=== PATIENT | female | born 1950 | race Caucasian/White ===

== ENCOUNTER 2022-03-08 10:56 | Outpatient (RCR) | payer MEDICARE ==
[~2022-03-08 10:56] MED LIST: CELEBREX200 MG PO; CENTRUM SILVER1 EAC3 PO; ESTRADIOL1 MG PO; FLONASE ALLERG9.9 ML INH; GLUCOSAMINE1000 MG PO; IRON PO; LEVOTHYROXINE50 MCG PO; METOPROLOL SUCC50 MG PO; OMEPRAZOLE40 MG PO; SUDAFED PO; URIBEL CAPSULE1 EACH PO; VIT C PO; VITAMIN D325 MCG PO; ZYRTEC10 M3 PO
== END 2022-03-12 ==
LOC: PT 10:56
PROVIDERS: ATTEND Neurological Surgery
DX: M48.061 Spinal stenosis, lumbar region without neurogenic claudication (principal)

== ENCOUNTER → 2022-03-11 | Day surgery (SDC) | payer MEDICARE ==
[2022-03-08 12:55] LABS: BASOPHILS % 0.7 % (0.0-1.0); EOSINOPHILS # (AUTO) 0.2 (0.0-0.4); EOSINOPHILS % 3.2 % (0.0-6.0); HEMATOCRIT 39.7 % (34.2-44.1); HEMOGLOBIN 12.1 g/dL (12.0-16.0); LYMPHOCYTES # (AUTO) 1.5 (1.0-3.2); LYMPHOCYTES % 26.3 % (18.0-39.1); MEAN CORPUSCULAR HEMOGLOBIN 30.2 pg (28-32); MEAN CORPUSCULAR HGB CONC 30.5 g/dL (31-35); MONOCYTES # (AUTO) 0.5 (0.2-0.8); MONOCYTES % 7.9 % (4.4-11.3); NEUTROPHILS # (AUTO) 3.6 (2.1-6.9); NEUTROPHILS % 61.7 % (38.7-80.0); PLATELET COUNT 232 x10e3/uL (140-360); RED BLOOD COUNT 4.01 x10e6/uL (3.6-5.1); RED CELL DISTRIBUTION WIDTH 13.5 % (11.7-14.4)
[~2022-03-11] MED LIST changes: +BUPIVACAINE 0.25% 30ML SDV ONE; +IOPAMIDOL 200 MG/ML 20 ML VIAL IT ONE; +LIDOCAINE HCL 1% 30ML-PF VIAL ONE; +LIDOCAINE HCL 2% LOCAL INJ 5 ML SDV VIAL INJ ONE; +MIDAZOLAM HCL 2 MG/2 ML VIAL ONE; +PROPOFOL IV EMULSION 10 MG/ML 20 ML VIAL ONE; +TRIAMCINOLONE ACET 40 MG/ML VIAL ONE
[2022-03-11 07:20] VITALS: BP 116/85
== END | disposition home or self-care (01) ==
LOC: OR 05:59
PROVIDERS: ATTEND Physical Medicine & Rehabilitation Pain Medicine
DX: M47.896 Other spondylosis, lumbar region (principal); E03.9 Hypothyroidism, unspecified; I10 Essential (primary) hypertension; M25.40 Effusion, unspecified joint; Z96.653 Presence of artificial knee joint, bilateral; Z88.5 Allergy status to narcotic agent; Z91.012 Allergy to eggs; Z91.040 Latex allergy status; Z91.011 Allergy to milk products; Z01.810 Encounter for preprocedural cardiovascular examination; Z01.812 Encounter for preprocedural laboratory examination; F41.9 Anxiety disorder, unspecified
CPT/HCPCS: 36415; 64493; 64494; 77003; 85025; 93005; J2001 ×2; J2250; J2704; J3301; Q9967

== ENCOUNTER 2022-03-15 07:03 | Outpatient (RCR) | payer MEDICARE ==
[~2022-03-15 07:03] MED LIST changes: -BUPIVACAINE 0.25% 30ML SDV ONE; -IOPAMIDOL 200 MG/ML 20 ML VIAL IT ONE; -LIDOCAINE HCL 1% 30ML-PF VIAL ONE; -LIDOCAINE HCL 2% LOCAL INJ 5 ML SDV VIAL INJ ONE; -MIDAZOLAM HCL 2 MG/2 ML VIAL ONE; -PROPOFOL IV EMULSION 10 MG/ML 20 ML VIAL ONE; -TRIAMCINOLONE ACET 40 MG/ML VIAL ONE
== END 2022-04-12 ==
LOC: PT 07:03
PROVIDERS: ATTEND Neurological Surgery
DX: M48.062 Spinal stenosis, lumbar region with neurogenic claudication (principal); M62.81 Muscle weakness (generalized); R26.2 Difficulty in walking, not elsewhere classified

== ENCOUNTER 2022-04-16 06:56 | Outpatient (RCR) | payer MEDICARE ==
[2022-04-26] MEDS ORDERED: ALLEGRA ALLERGY60 MG PO (11:24)
== END 2022-05-12 ==
LOC: PT 06:56
PROVIDERS: ATTEND Neurological Surgery
DX: M48.062 Spinal stenosis, lumbar region with neurogenic claudication (principal); M62.81 Muscle weakness (generalized); R26.2 Difficulty in walking, not elsewhere classified

== ENCOUNTER → 2022-04-29 | Day surgery (SDC) | payer MEDICARE ==
[2022-04-26 13:20] LABS: BASOPHILS % 0.5 % (0.0-1.0); EOSINOPHILS # (AUTO) 0.2 (0.0-0.4); EOSINOPHILS % 3.6 % (0.0-6.0); HEMATOCRIT 39.6 % (34.2-44.1); HEMOGLOBIN 12.2 g/dL (12.0-16.0); LYMPHOCYTES # (AUTO) 1.8 (1.0-3.2); LYMPHOCYTES % 31.8 % (18.0-39.1); MEAN CORPUSCULAR HGB CONC 30.8 g/dL (31-35); MEAN CORPUSCULAR VOLUME 100.5 fL (81-99); MONOCYTES # (AUTO) 0.5 (0.2-0.8); MONOCYTES % 8.5 % (4.4-11.3); NEUTROPHILS # (AUTO) 3.1 (2.1-6.9); NEUTROPHILS % 55.2 % (38.7-80.0); PLATELET COUNT 225 x10e3/uL (140-360); RED BLOOD COUNT 3.94 x10e6/uL (3.6-5.1); RED CELL DISTRIBUTION WIDTH 13.4 % (11.7-14.4)
[~2022-04-29] MED LIST changes: +ALLEGRA ALLERGY60 MG PO; +BUPIVACAINE 0.25% 30ML SDV ONE; +ETOMIDATE 2 MG/ML 10 ML INJ IV ONE; +IOPAMIDOL 200 MG/ML 20 ML VIAL IT ONE; +LIDOCAINE HCL 1% 30ML-PF VIAL ONE; +MIDAZOLAM HCL 2 MG/2 ML VIAL ONE; +PROPOFOL IV EMULSION 10 MG/ML 20 ML VIAL ONE; +TRIAMCINOLONE ACET 40 MG/ML VIAL ONE
[2022-04-29 09:15] VITALS: BP 151/81
== END | disposition home or self-care (01) ==
LOC: OR 06:13
PROVIDERS: ATTEND Physical Medicine & Rehabilitation Pain Medicine
DX: M47.896 Other spondylosis, lumbar region (principal); I10 Essential (primary) hypertension; E03.9 Hypothyroidism, unspecified; Z88.6 Allergy status to analgesic agent; Z91.012 Allergy to eggs; Z91.040 Latex allergy status; Z91.011 Allergy to milk products; Z91.048 Other nonmedicinal substance allergy status; Z01.812 Encounter for preprocedural laboratory examination
CPT/HCPCS: 36415; 64493; 64494; 64495; 85025; J2001; J2250; J2704; J3301; Q9967; 77003

== ENCOUNTER → 2023-07-14 | Outpatient (REF) | payer MEDICARE ==
[~2023-07-14] MED LIST changes: +ACETAMINOPHEN325 M1 PO; -BUPIVACAINE 0.25% 30ML SDV ONE; +ELIQUIS5 MG PO; -ETOMIDATE 2 MG/ML 10 ML INJ IV ONE; -IOPAMIDOL 200 MG/ML 20 ML VIAL IT ONE; -LIDOCAINE HCL 1% 30ML-PF VIAL ONE; -MIDAZOLAM HCL 2 MG/2 ML VIAL ONE; -PROPOFOL IV EMULSION 10 MG/ML 20 ML VIAL ONE; -TRIAMCINOLONE ACET 40 MG/ML VIAL ONE; +WARFARIN SODIUM5 MG PO
== END ==
LOC: MRI 12:51
PROVIDERS: ATTEND Specialist
DX: S46.011D Strain of muscle(s) and tendon(s) of the rotator cuff of right shoulder, subsequent encounter (principal)

== ENCOUNTER → 2024-09-17 | Outpatient (REF) | payer MEDICARE | LOC: MRI 14:37 | PROVIDERS: ATTEND Physical Medicine & Rehabilitation Pain Medicine | DX: M54.50 Low back pain, unspecified (principal); M47.896 Other spondylosis, lumbar region; M54.16 Radiculopathy, lumbar region | CPT/HCPCS: 72148 ==